=== PATIENT | female | born 1995 | race Caucasian/White ===

== ENCOUNTER 2019-06-16 01:15 | Emergency (ER) | payer SELFPAY ==
[~2019-06-16] VITALS: Ht 167.6 cm; Wt 79.0 kg
[2019-06-16 04:40] VITALS: BP 115/72
== END 2019-06-16 04:47 | disposition home or self-care (01) ==
LOC: ER 01:44
DX: F10.129 Alcohol abuse with intoxication, unspecified (principal); Y90.9 Presence of alcohol in blood, level not specified
CPT/HCPCS: 99283